=== PATIENT | female | born 1940 | race Caucasian/White ===

== ENCOUNTER 2017-03-06 17:20 | Inpatient (IN) | payer MEDICARE, BC, MEDICAID ==
[~2017-03-06 17:20] MED LIST: ADOXA100 MG; ADVAIR 5001 DISK W/D INH; ALLEGRA ALLERG180 M1 PO; ALPRAZOLAM0.5 MG; AMBIEN5 MG PO; ASPIR 8181 MG PO; ATENOLOL25 MG PO; BIAXIN500 MG; BROVANA15 MCG/2 M IH; BYSTOLIC5 MG PO; COMBIVENT INH14.7 GM IH; COMBIVENT INH14.7 GM INH; COUMADIN2 MG; COUMADIN3 M1 PO; COUMADIN3 MG PO; COUMADIN5 MG; DIGOXIN250 MCG PO; DOCUSATE SODIU100 M2 PO; ELIQUIS2.5 M1 PO; FEROSUL325 MG PO; FORADIL IH; FORADIL INH; GLUCOPHAGE500 M3 PO; GUAIFENESIN LA600 M1 PO; IPRAT-ALBUT 0.5-3 ML IH; IRON18 M1 PO; LASIX20 MG PO; LASIX40 MG PO; LEVAQUIN750 M1 PO; LEVAQUIN750 MG PO; LIPITOR10 M1 PO; LOVENOX40 MG/0.4 SQ; MILK OF MA400 MG/5 M PO; MIRALAX17 G2 PO; MOTRIN600 MG PO; MUCINEX600 M1 PO; MUCINEX600 MG PO; NORCO 5/3251 TAB PO; OMEPRAZOLE20 M1 PO; OMNICEF300 MG PO; PERCOCET 5/3251 TAB PO; PRED FORTE5 ML OP; PREDNISONE10 M1; PREDNISONE10 MG PO; PREDNISONE20 MG PO; PREDNISONE5 M1 PO; PREDNISONE5 MG PO; PRILOSEC20 MG PO; PROVENTIL HFA6.7 G1 IH; PROVENTIL5 MG/ML IH; PULMICORT0.5 MG/21 IH; ROXANOL PO/SL; SENOKOT-S TABLE1 TAB PO; SPIRIVA RESPIMAT4 G1 INH; SPIRIVA RESPIMAT4 GM INH; SPIRONOLACTONE25 M2 PO; TUMS500 MG PO; TYLENOL325 M2 PO; TYLENOL325 MG PO; VENTOLIN HFA18 GM IH; VITAMIN A10000 UNIT PO; VITAMIN D250000 UNIT PO; WELLBUTRIN SR150 M1 PO; WELLBUTRIN SR150 M2 PO; XANAX0.25 MG PO; ZOCOR20 MG PO
[2017-03-06 17:58] LABS: BASO % 0.3 % (0-2); EOS % 1.4 % (0-7); EOSINOPHIL ABSOLUTE COUNT 0.2 tho/cmm (0.0-0.7); HCT-HEMATOCRIT 40.1 % (34.0-49.0); HGB-HEMOGLOBIN 12.9 gm/dl (12.0-15.5); IMMATURE GRANULOCYTES ABSOLUTE 0.05 tho/cmm (0-0.03); IMMATURE GRANULOCYTES PERCENT 0.4 % (0-0.3); LYMPH % 6.8 % (20-45); LYMPH ABSOLUTE COUNT 0.8 tho/cmm (0.8-4.5); MCH (MEAN CORPUSCULAR HGB) 27.5 pg (28.0-32.0); MCHC MEAN CORPUSCULAR HGB CONC 32.2 % (32.0-36.0); MCV (MEAN CELL VOLUME) 85.5 fl (82.0-96.0); MEAN PLATELET VOLUME 9.4 cmc (9.4-12.4); MONOCYTE ABSOLUTE COUNT 1.2 tho/cmm (0.0-1.2); NEUTROPHIL ABSOLUTE COUNT 9.1 tho/cmm (1.6-8.0); NEUTROPHIL-AUTOMATED 9.1 tho/cmm (1.6-8.0); NEUTROPHILS % 80.1 % (40-80); PLATELET COUNT 225 tho/cmm (150-450); RED BLOOD COUNT 4.69 mil/cmm (4.00-5.20); RED CELL DISTRIBUTION WIDTH 15.9 % (12.4-16.4); WHITE BLOOD COUNT 11.3 tho/cmm (4.0-10.0)
[2017-03-06 18:10] LABS: ABG CO2 ARTERIAL 27 mmol/L (21-27); ARTERIAL BLD GAS O2 SATURATION 94 % (95-98); ARTERIAL BLOOD GAS PCO2 41 mmHg (32-45); ARTERIAL PO2 70 mmHg (70-100); BICARBONATE 26 mmol/L (21-28); BLOOD GAS BASE EXCESS 2 mM/L (-/+3); PH 7.42 Units (7.35-7.45)
[2017-03-06 18:15] LABS: ANION GAP 12 mmol/L (0-20); BLOOD UREA NITROGEN 18 mg/dl (6-24); CALCIUM 8.6 mg/dl (8.5-10.5); CARBON DIOXIDE-VENOUS 28 mmol/L (22-32); CHLORIDE 103 mmol/l (96-110); CREATININE 1.04 mg/dl (0.50-1.10); GLUCOSE 95 mg/dL (70-110); SODIUM 139 mmol/L (135-145); eGFR VALUE FOR BLACK 61 mL/Min
[2017-03-06 18:23] LABS: POTASSIUM 4.3 mmol/L (3.7-5.1)
[2017-03-06] MEDS ORDERED: CALCIUM CARBON600 M2 PO (18:53)
[2017-03-06] MEDS ORDERED: LANOXIN125 MC3 PO (18:54)
[2017-03-06] MEDS ORDERED: CLARITIN10 M6 PO (18:56)
[2017-03-06] MEDS ORDERED: K-TAB ER10 MEQ PO (19:09)
[2017-03-06] MEDS ORDERED: SYMBICORT 160-1 PUFF INH (19:11)
[2017-03-06] MEDS ORDERED: PREDNISONE10 M1 PO (19:11)
[2017-03-06] MEDS ORDERED: DEMADEX20 M1 PO (19:13)
[2017-03-06] MEDS ORDERED: VIBRAMYCIN100 M1 PO (19:19)
[2017-03-06] MEDS ORDERED: XANAX0.25 M1 PO (19:20)
[2017-03-06] MEDS ORDERED: BISCOLAX10 MG PR (19:20)
[2017-03-06] MEDS ORDERED: MILK OF MAGNESIA PO (19:21)
[2017-03-07 04:45] LABS: HCT-HEMATOCRIT 38.8 % (34.0-49.0); HGB-HEMOGLOBIN 12.3 gm/dl (12.0-15.5); IMMATURE GRANULOCYTES ABSOLUTE 0.03 tho/cmm (0-0.03); IMMATURE GRANULOCYTES PERCENT 0.4 % (0-0.3); LYMPH ABSOLUTE COUNT 0.4 tho/cmm (0.8-4.5); MCH (MEAN CORPUSCULAR HGB) 27.1 pg (28.0-32.0); MCHC MEAN CORPUSCULAR HGB CONC 31.7 % (32.0-36.0); MCV (MEAN CELL VOLUME) 85.5 fl (82.0-96.0); MEAN PLATELET VOLUME 9.5 cmc (9.4-12.4); MONO % 2.8 % (0-12); MONOCYTE ABSOLUTE COUNT 0.2 tho/cmm (0.0-1.2); NEUTROPHIL ABSOLUTE COUNT 7.8 tho/cmm (1.6-8.0); NEUTROPHIL-AUTOMATED 7.8 tho/cmm (1.6-8.0); NEUTROPHILS % 91.8 % (40-80); PLATELET COUNT 235 tho/cmm (150-450); RED BLOOD COUNT 4.54 mil/cmm (4.00-5.20); RED CELL DISTRIBUTION WIDTH 15.6 % (12.4-16.4); WHITE BLOOD COUNT 8.4 tho/cmm (4.0-10.0)
[2017-03-07 04:53] LABS: ANION GAP 13 mmol/L (0-20); BLOOD UREA NITROGEN 17 mg/dl (6-24); CARBON DIOXIDE-VENOUS 27 mmol/L (22-32); CHLORIDE 104 mmol/l (96-110); CREATININE 1.25 mg/dl (0.50-1.10); GLUCOSE 135 mg/dL (70-110); POTASSIUM 4.2 mmol/L (3.7-5.1); SODIUM 140 mmol/L (135-145); eGFR VALUE FOR BLACK 49 mL/Min
--- NOTE | 2017-03-07 16:04 | NUR ---
VIRTUAL CARE NOTE: PT AWAKE, SITTING UP IN CHAIR, VERBALIZES STILL EXPERIENCE SOB, INCREASED SOB W/ ACTIVITY. PT VERBALIZES SHE USES 1.5-2L O2 WITH ACTIVITY AT HOME. PT DENIES QUESTIONS/CONCERNS AT THIS TIME. VN WILL CONTINUE TO MONITOR RECORD AND FOLLOW W/ PT
[2017-03-08 05:18] LABS: ANION GAP 12 mmol/L (0-20); BLOOD UREA NITROGEN 18 mg/dl (6-24); CALCIUM 8.4 mg/dl (8.5-10.5); CARBON DIOXIDE-VENOUS 28 mmol/L (22-32); CHLORIDE 107 mmol/l (96-110); CREATININE 0.98 mg/dl (0.50-1.10); GLUCOSE 120 mg/dL (70-110); SODIUM 142 mmol/L (135-145); eGFR VALUE FOR BLACK 66 mL/Min
[2017-03-08 05:19] LABS: POTASSIUM 4.7 mmol/L (3.7-5.1)
--- NOTE | 2017-03-08 13:06 | NUR ---
[facility] note: visited with pt at this time. she is sitting up in bed, resting. denies pain, but does have oxygen in place. states normall she wears up to 2lpm with activity only at home, none at bedtime and none at rest. her voice is very hoarse. she states she has been coughing and has a very runny nose. there is a Bipap machine at bedside-pt states they tried to use this but she was unable to tolerate it due to her constant coughing and nasal drip. has no further needs or questions. encouraged her to walk when she can. she has a history of CHF per the nurses notes. does have some dyspnea during our conversation, but does not appear to be in any distress. will continue to monitor. electronic chart reviewed.
[2017-03-11 04:33] LABS: HCT-HEMATOCRIT 36.1 % (34.0-49.0); HGB-HEMOGLOBIN 11.3 gm/dl (12.0-15.5); IMMATURE GRANULOCYTES ABSOLUTE 0.09 tho/cmm (0-0.03); IMMATURE GRANULOCYTES PERCENT 1.2 % (0-0.3); LYMPH ABSOLUTE COUNT 0.5 tho/cmm (0.8-4.5); MCH (MEAN CORPUSCULAR HGB) 26.7 pg (28.0-32.0); MCHC MEAN CORPUSCULAR HGB CONC 31.3 % (32.0-36.0); MCV (MEAN CELL VOLUME) 85.3 fl (82.0-96.0); MEAN PLATELET VOLUME 9.3 cmc (9.4-12.4); MONO % 5.8 % (0-12); MONOCYTE ABSOLUTE COUNT 0.5 tho/cmm (0.0-1.2); NEUTROPHIL ABSOLUTE COUNT 6.8 tho/cmm (1.6-8.0); NEUTROPHIL-AUTOMATED 6.8 tho/cmm (1.6-8.0); PLATELET COUNT 235 tho/cmm (150-450); RED BLOOD COUNT 4.23 mil/cmm (4.00-5.20); RED CELL DISTRIBUTION WIDTH 15.5 % (12.4-16.4); WHITE BLOOD COUNT 7.8 tho/cmm (4.0-10.0)
[2017-03-11 04:40] LABS: ANION GAP 10 mmol/L (0-20); BLOOD UREA NITROGEN 21 mg/dl (6-24); CALCIUM 8.4 mg/dl (8.5-10.5); CARBON DIOXIDE-VENOUS 32 mmol/L (22-32); CHLORIDE 102 mmol/l (96-110); CREATININE 0.97 mg/dl (0.50-1.10); GLUCOSE 146 mg/dL (70-110); POTASSIUM 4.4 mmol/L (3.7-5.1); SODIUM 140 mmol/L (135-145); eGFR VALUE FOR BLACK 67 mL/Min
--- NOTE | 2017-03-11 14:29 | NUR ---
[id number] VIRTUAL NURSE NOTE: STATES IS NOT SLEEPING WELL. TOOK XANAX, BUT STILL DIDN'T SLEEP WELL. HAS TROUBLE BREATHING AT TIMES BECAUSE OF NASAL CONGESTION. PAIN IS SOMEWHAT CONTROLLED WITH TYLENOL. DOES NOT WISH TO TAKE ANYTHING STRONGER, BECAUSE IT MAKES HER DROUSY. Sarah VEGA RN
[2017-03-13 04:31] LABS: BASO % 0.1 % (0-2); HCT-HEMATOCRIT 36.1 % (34.0-49.0); HGB-HEMOGLOBIN 11.4 gm/dl (12.0-15.5); IMMATURE GRANULOCYTES ABSOLUTE 0.36 tho/cmm (0-0.03); IMMATURE GRANULOCYTES PERCENT 3.6 % (0-0.3); LYMPH ABSOLUTE COUNT 0.7 tho/cmm (0.8-4.5); MCHC MEAN CORPUSCULAR HGB CONC 31.6 % (32.0-36.0); MCV (MEAN CELL VOLUME) 85.3 fl (82.0-96.0); MEAN PLATELET VOLUME 9.1 cmc (9.4-12.4); MONO % 12.1 % (0-12); MONOCYTE ABSOLUTE COUNT 1.2 tho/cmm (0.0-1.2); NEUTROPHIL ABSOLUTE COUNT 7.8 tho/cmm (1.6-8.0); NEUTROPHIL-AUTOMATED 7.8 tho/cmm (1.6-8.0); NEUTROPHILS % 77.2 % (40-80); PLATELET COUNT 262 tho/cmm (150-450); RED BLOOD COUNT 4.23 mil/cmm (4.00-5.20); RED CELL DISTRIBUTION WIDTH 15.9 % (12.4-16.4)
[2017-03-13 05:00] LABS: ANION GAP 11 mmol/L (0-20); BLOOD UREA NITROGEN 25 mg/dl (6-24); CALCIUM 8.8 mg/dl (8.5-10.5); CARBON DIOXIDE-VENOUS 33 mmol/L (22-32); CHLORIDE 102 mmol/l (96-110); CREATININE 0.99 mg/dl (0.50-1.10); GLUCOSE 148 mg/dL (70-110); SODIUM 142 mmol/L (135-145); eGFR VALUE FOR BLACK 65 mL/Min
[2017-03-13 05:13] LABS: POTASSIUM 4.3 mmol/L (3.7-5.1)
--- NOTE | 2017-03-13 13:37 | NUR ---
virtual care note: attempted to visit with pt at this time. she is having trouble hearing the VN at this time. has several alarms beeping. paged RN to notify of her need for assistance. will continue to monitor. electronic chart reviewed.
[2017-03-14 05:48] LABS: BASO % 0.2 % (0-2); EOS % 0.1 % (0-7); HCT-HEMATOCRIT 39.7 % (34.0-49.0); HGB-HEMOGLOBIN 12.6 gm/dl (12.0-15.5); IMMATURE GRANULOCYTES ABSOLUTE 0.41 tho/cmm (0-0.03); IMMATURE GRANULOCYTES PERCENT 3.8 % (0-0.3); LYMPH % 10.5 % (20-45); LYMPH ABSOLUTE COUNT 1.1 tho/cmm (0.8-4.5); MCH (MEAN CORPUSCULAR HGB) 26.8 pg (28.0-32.0); MCHC MEAN CORPUSCULAR HGB CONC 31.7 % (32.0-36.0); MCV (MEAN CELL VOLUME) 84.5 fl (82.0-96.0); MEAN PLATELET VOLUME 9.3 cmc (9.4-12.4); MONO % 11.1 % (0-12); MONOCYTE ABSOLUTE COUNT 1.2 tho/cmm (0.0-1.2); NEUTROPHIL ABSOLUTE COUNT 7.9 tho/cmm (1.6-8.0); NEUTROPHIL-AUTOMATED 7.9 tho/cmm (1.6-8.0); NEUTROPHILS % 74.3 % (40-80); PLATELET COUNT 306 tho/cmm (150-450); RED CELL DISTRIBUTION WIDTH 15.6 % (12.4-16.4); WHITE BLOOD COUNT 10.7 tho/cmm (4.0-10.0)
[2017-03-14 05:59] LABS: BLOOD UREA NITROGEN 24 mg/dl (6-24); CALCIUM 8.5 mg/dl (8.5-10.5); CARBON DIOXIDE-VENOUS 33 mmol/L (22-32); CHLORIDE 95 mmol/l (96-110); CREATININE 1.11 mg/dl (0.50-1.10); GLUCOSE 140 mg/dL (70-110); PHOSPHOROUS 3.6 mg/dl (2.5-4.9); SODIUM 137 mmol/L (135-145); eGFR VALUE FOR BLACK 57 mL/Min
[2017-03-14 06:23] LABS: ANION GAP 13 mmol/L (0-20); MAGNESIUM 2.5 mg/dl (1.8-2.6); POTASSIUM 3.8 mmol/L (3.7-5.1)
[2017-03-14] MEDS ORDERED: PREDNISONE10 M1 PO (09:53)
== END 2017-03-14 12:10 | disposition other institution (70) | DRG 190 ==
LOC: EDMED 17:20 → EMR2 21:06 → 5WD 21:40
PROVIDERS: Emergency Medicine; Internal Medicine; ADMIT Hospitalist
PROC: 5A09457 Assistance with Respiratory Ventilation, 24-96 Consecutive Hours, Continuous Positive Airway Pressure (ICD-10-PCS; principal; 2017-03-06)
DX: J44.0 Chronic obstructive pulmonary disease with (acute) lower respiratory infection (principal); J96.21 Acute and chronic respiratory failure with hypoxia; N17.9 Acute kidney failure, unspecified; J12.3 Human metapneumovirus pneumonia; I13.0 Hypertensive heart and chronic kidney disease with heart failure and stage 1 through stage 4 chronic kidney disease, or unspecified chronic kidney disease; J96.11 Chronic respiratory failure with hypoxia; E11.9 Type 2 diabetes mellitus without complications; E55.9 Vitamin D deficiency, unspecified; F41.9 Anxiety disorder, unspecified; G47.33 Obstructive sleep apnea (adult) (pediatric); I25.10 Atherosclerotic heart disease of native coronary artery without angina pectoris; I34.0 Nonrheumatic mitral (valve) insufficiency; J44.1 Chronic obstructive pulmonary disease with (acute) exacerbation; K21.9 Gastro-esophageal reflux disease without esophagitis; Z79.01 Long term (current) use of anticoagulants; Z87.891 Personal history of nicotine dependence; Z95.0 Presence of cardiac pacemaker; J30.2 Other seasonal allergic rhinitis; M81.0 Age-related osteoporosis without current pathological fracture; Z87.81 Personal history of (healed) traumatic fracture; Z90.710 Acquired absence of both cervix and uterus; Z86.73 Personal history of transient ischemic attack (TIA), and cerebral infarction without residual deficits; Z66 Do not resuscitate
CPT/HCPCS: G8978-GO-CK; G8978-GP-CJ; G8979-GO-CI; G8979-GP-CI; J0456; J1815; J1956; J2405; J2930; J7030; J7050; J7512